=== PATIENT | female | born 1985 | race Caucasian/White ===

== ENCOUNTER 2018-09-29 12:47 | Emergency (ER) | payer OTHER ==
[~2018-09-29] VITALS: Ht 160 cm; Wt 85.5 kg
[2018-09-29] MEDS ORDERED: ACETAMINOPHEN 325 MG TABLET PO ONE (15:15)
[2018-09-29 17:25] VITALS: BP 133/81
[2018-09-29] MEDS ORDERED: KETOROLAC TROMETHAMINE 30 MG/ML VIAL IM ONE (18:00)
== END 2018-09-29 18:21 | disposition home or self-care (01) ==
LOC: EMS 12:48
DX: S02.2XXA Fracture of nasal bones, initial encounter for closed fracture (principal); F17.210 Nicotine dependence, cigarettes, uncomplicated; Y04.0XXA Assault by unarmed brawl or fight, initial encounter; Y93.89 Activity, other specified; Y92.89 Other specified places as the place of occurrence of the external cause; Y99.8 Other external cause status
CPT/HCPCS: 70450; 70486; 81025; 96372; 99284; J1885